=== PATIENT | female | born 1985 | race Caucasian/White ===

== ENCOUNTER 2016-09-28 16:25 | Inpatient (IN) | payer OTHER ==
--- NOTE | ~2016-09-28 | CO ---
Unit #: [id number] #: [id number] Patient: PHI VILLA [id number] [place] [address] [id number] I MR#: [id number] NAME: PHI VILLA ROOM: 73 Age: 31 Sex: F Admission Date: 09/28/2016 : 1985 Attending Physician: Junior Anderson M.D. Consultation Date: 09/28/2016 CONSULTATION REPORT ZOEY Madden is a 31-year-old, admitted because of her illicit drug use, which included abusing pain pills. She complained to nursing staff of pain in her coccyx. She denies any injury and she has had no problem with her bowel movements. We have been asked to assess and give recommendations. Please see H and P for physical exam. Because of her abuse of pain pills, we can treat this discomfort/pain with Tylenol and/or Motrin. Both of these have already been ordered. Dictated by... Aurora Mccracken P.A.-C. for Abundio Servin/meek TD: 10/01/2016 02:50 JOB #: [id number] CONSULTATION REPORT X Aurora Mccracken CONSULTATION REPORT
--- NOTE | ~2016-09-28 | HP ---
Unit #: [id number] #: [id number] Patient: MARYANNE VILLA [id number] [facility] [address] [place] [address] [id number] I MR#: [id number] NAME: MARYANNE VILLA ROOM: P173 Age: 31 Sex: F Admission Date: 09/28/2016 : 1985 Attending Physician: Junior Anderson M.D. Admitting Physician: Junior Anderson M.D. Primary Care Physician: Generic Doctor Not In System HISTORY AND PHYSICAL HISTORY OF PRESENT ILLNESS Maryanne is a 31 year old admitted to [facility] because of her illicit drug use which includes cocaine and abusing pain pills. PAST MEDICAL HISTORY Long history of opioid abuse. PAST SURGICAL HISTORY Nothing reported ALLERGIES No known drug allergies. SOCIAL HISTORY Smokes greater than one pack per day. Denies alcohol. Admits to a long history of opioid abuse. FAMILY HISTORY Medically noncontributory. REVIEW OF SYSTEMS CONSTITUTIONAL: No fever or chills. HEENT: Denies any sore throat, ear pain or runny nose. CARDIOVASCULAR: Denies chest pain, irregular heart rhythm or palpitations. CHEST: Denies shortness of breath or cough. No hemoptysis. GASTROINTESTINAL: Denies nausea, vomiting, diarrhea or chronic constipation. ENDOCRINE: Denies history of increased thirst or urination. No recent significant weight loss or gain. GENITOURINARY: Denies dysuria, frequency, or hematuria. SKIN: Denies any rashes. HEMATOLOGIC: Denies history of increased bleeding or bruising. MUSCULOSKELETAL: Denies any hot, swollen joints. No generalized muscle pain. NEUROLOGIC: Denies problems with vision or speech. No frequent, severe headaches. No numbness, tingling or weakness in any extremities. Denies loss of bladder or bowel control. CURRENT MEDICATIONS Detox protocol Unit #: [id number] #: [id number] Patient: MARYANNE VILLA PHYSICAL EXAMINATION GENERAL: Alert, well-nourished, in no apparent distress. VITAL SIGNS: Blood pressure 120/84, heart rate 100, respirations 16, temperature 98.6. WEIGHT: 130 pounds. HEIGHT: 5'9". SKIN: Warm and dry without rash or lesion. HEENT: Normocephalic. TMs not viewed. Oral and nasal passages clear. Conjunctivae clear. Pupils equal, round and reactive to light and accommodation. Extraocular movements intact. NECK: Supple without lymphadenopathy or thyromegaly. HEART: Regular rate and rhythm without murmur. LUNGS: Clear. ABDOMEN: Soft, nontender. : Not done. EXTREMITIES: No evidence of cyanosis, clubbing or edema. Moves all extremities without focal deficit. NEUROLOGICAL: Grossly within normal limits. Cranial Nerves: II: Visual turner are intact. III, IV AND : Extraocular movements are intact. Pupils are equal, round and reactive to light. V: Facial sensation is grossly normal. VII: Facial movements and expression are normal. VIII: Auditory acuity grossly intact. IX, X: Uvula is midline. Phonation is normal. XI: Patient shrugs shoulders and turns head normally. XII: Tongue protrudes in the midline. Sensory and Motor Function: Sensory and motor sensation is grossly normal. Motor: moves all extremities well. Coordination: Gait is normal. Deep Tendon Reflexes: Intact. IMPRESSION Psychiatric admission RECOMMENDATIONS PSYCHIATRIC: Per psychiatrist. MEDICAL: I see no contraindications to participating in facility's activities. MEDICAL PROGNOSIS Good. MEDICAL CONDITION Stable. Dictated by... Aurora Mccracken P.A.-C. for Abundio Servin/alexa TD: 09/29/2016 02:43 JOB #: [id number] Unit #: [id number] #: [id number] Patient: MARYANNE VILLA HISTORY AND PHYSICAL X Aurora Mccracken X HISTORY AND PHYSICAL
--- NOTE | ~2016-09-28 | A ---
[facility] Nutrition Therapy DATE: 09/30/16 Patient: PHI VILLA Physician: ANU Address: [address] [facility] Room/Bed: [address], Zip: [place] [address] Admit Date: 09/28/16 Date of : [birth year] Height: 5 9 Weight: 129 58.21478 NUTRITIONAL ASSESSMENT: REASON: 1 point malnutrition risk score re: unintentional weight loss Admitting Dx: 31 y/o female undergoing heroin/opioid detox PMH: Opioid abuse, > 1 ppd smoker, Hep C Anthropometrics: Ht: 69", Wt: 130 lbs, BMI: 19 (normal) Labs: AST 63, ALT 96 Meds: Milk of Mg, Mag-al, MVI, Thiamine, Folic acid, Phenergan/zofran, psych meds noted Assessment: Chart reviewed, events noted. Patient undergoing heroin/opiod detox, see admitting dx and PMH above. Patient employed with same job since January of last year, lives in an apartment with her child. She is on a regular diet with no caffeine. She confirms a 30 lb weight loss in the past 4 months due to "using." Yesterday she had complained of some nausea and cramps but seems better today, states she is eating "anything and everything," which is normal for her while detoxing. She confirms receiving large portion entrees with lunch and dinner, says she usually drinks off-brand Ensure 1 per day at home, likes vanilla. She says the Ensure seems to help her maintain her current weight, but does not promote weight gain. RD explained patient is still at a healthy weight, but if she continues to lose weight she will be underweight, goal is to maintain current weight status. Patient agreed, was very pleasant and appreciative. See RD recs below. Dx: Unintentional weight loss r/t drug abuse AEB 1 point malnutrition risk score, patient confirms losing approx. 30 lbs since April. Intervention: Continue large entree with L/D Monitoring, Evaluation and Goals: 1. Adequate oral intake > 75% of meals with minimal c/o N/V. 2. Prevent further unintentional weight loss, maintain current weight status. Recommendations: 1. Continue regular diet, no caffeine per MD. Continue large portion entree with lunch and dinner. Encourage adequate solid and fluid intake. 2. If patient's PO intake falls below 50% of meals please order vanilla Ensure Plus BID. She is eating very well at this time and all of large portions. [facility] Nutrition Therapy DATE: 09/30/16 Patient: PHI VILAL Physician: ANU Address: [address] [place] [address] Room/Bed: [address], Zip: [place] [address] Admit Date: 09/28/16 Date of : [birth year] Height: 5 9 Weight: 129 58.92562 3. Please weigh q 3 days for monitoring purposes, as she has lost approx. 30 lbs since April. Please notify RD if weights start trending down. 4. Please consult RD with any further nutritional needs. Mild-moderate nutrition risk Respectfully, Meghan Ayala, ERIN, LD [facility] cc: client file
--- NOTE | ~2016-09-28 | PA ---
Unit #: [id number] #: [id number] Patient: PHI VILLA [id number] [facility] [address] [place] [address] [id number] I MR#: [id number] NAME: PHI VILLA ROOM: P173 Age: 31 Sex: F Admission Date: 09/28/2016 : 1985 Date of Assessment: 09/29/2016 Attending Physician: Junior Anderson M.D. Admitting Physician: Junior Anderson M.D. Primary Care Physician: Generic Doctor Not In System PSYCHIATRIC ASSESSMENT INFORMANTS The patient's reliability, fair; chart reliability, good. CHIEF COMPLAINT Opioid use and cocaine abuse. HISTORY OF PRESENT ILLNESS Ms. Madden is a 31-year-old female, seen on with the above-mentioned complaint. The patient reported using 1 to 3 g of heroin IV per day. The patient reported using 0.25 to 2 g of cocaine IV. The patient reported use for almost a year. The patient reported when she tries to not do heroin, she will snort and shoot at least 90 mg of Percocet. The patient reported that she relapsed 4 years ago. The patient clean for a month. The patient has a history of previous treatment for substance abuse in [place] in 2012, counseling associated in 2013, at [facility] at age 18, residential treatment at [facility] in 2005. The patient has a daughter 1-year-old. The patient currently denied any suicidal or homicidal ideation. Denied any psychotic symptom. Needing inpatient admission at this time for psychiatric stabilization. PAST PSYCHIATRIC HISTORY Remarkable for history of previous treatment as mentioned above. FAMILY HISTORY AND SOCIAL HISTORY The patient has 1-year-old daughter, not with her. The patient reported history of alcohol abuse and bipolar disorder in father. History of substance abuse in sibling. No known history of any abuse known. The patient reported drug charges in the past in 2011, possession of cocaine, incarcerated for burglary and DUI. The patient denied any current court date. No history of any abuse. MEDICAL HISTORY Unremarkable for any chronic medical illness. Musculoskeletal; muscle strength and tone, no atrophy or abnormal movement. Gait normal. MEDICATION HISTORY None. ALLERGIES No known drug allergies. SUBSTANCE ABUSE HISTORY Unit #: [id number] #: [id number] Patient: PHI VILLA The patient reported tobacco use, age of onset 16; alcohol, age of onset 16; crack cocaine, age of onset 17; opioid, age of onset 17. The patient reported history of blackout, HIV, withdrawal symptom, IV drug use. Currently having tremor, diarrhea, nervousness, depressed mood, poor appetite. REVIEW OF SYSTEMS HEENT: Eyes, clear. Ears, nose, mouth, and throat; clear. CARDIOVASCULAR: Unremarkable. RESPIRATORY: Unremarkable. GI: Unremarkable. : Unremarkable. SKIN: Unremarkable. LYMPH NODE: Unremarkable. NEUROLOGIC: Unremarkable. ENDOCRINE: Unremarkable. HEMATOLOGIC: Unremarkable. ALLERGIC/IMMUNOLOGIC: Unremarkable. MUSCULOSKELETAL: Muscle strength and tone, no atrophy or abnormal movement. Gait normal except as mentioned above. MENTAL STATUS EXAMINATION CONSTITUTIONAL: Measurement of vital signs; temperature 97.9, pulse 58, respirations 20, blood pressure 80/44. Height 5 feet 9 inches, weight 130 pounds. GENERAL APPEARANCE: The patient dressed casually. The patient did not show any facial deformity. PSYCHIATRIC EXAMINATION Description of speech; regular rate, normal volume, normal articulation, coherent. Description of thought process, goal directed. Description of association, intact. Description of abnormal psychotic thinking; the patient denied any hallucination or delusions, but mood lability and substance abuse. Description of the patient's judgment; concerning everyday activity, poor. Social situation, poor. Concerning psychiatric condition, poor. The patient denied any suicidal or homicidal ideation or any psychotic symptom. Complete mental status examination; oriented in time, place, and person. Recent and remote memory, fair. Attention span and concentration, fair. Language, able to name object and repeat phrases. Fund of knowledge, fair. Vocabulary, fair. Mood and affect, sad and dysphoric. Insight and judgment, fair to poor. ASSETS AND LIABILITIES Assets; the patient articulate, able to take care of her ADL. Liability; history of substance abuse. ADMITTING DIAGNOSES Psychiatric: Opioid use disorder, severe, F11.20, moderate; cocaine use disorder, severe, F14.20; mood disorder, not otherwise specified, F32.9. Secondary diagnosis: Deferred. Medical diagnosis: None. Stressors: Psychosocial stressors. Unit #: [id number] #: [id number] Patient: PHI VILLA PSYCHIATRIC PLAN AND TREATMENT GOAL 1. Advised to admit the patient on the inpatient unit. Provide safe, supportive, and structured environment. 2. Ordered labs; CBC, CMP, UA, and UDS. 3. Detox protocol and detox monitoring. The patient to be monitored closely. The patient to attend group therapy, individual therapy, and chemical dependency group. Treatment goal to attain euthymic mood, gain insight into her problem, and learn coping skills. If needed, consider further adjustment of medication. DISCHARGE PLAN Plan to stabilize the patient and consider followup in outpatient program. ESTIMATED LENGTH OF STAY 3 to 5 days. Dictated by... Junior Anderson M.D. BISHNU/meek TD: 09/30/2016 02:25 JOB #: [id number] PSYCHIATRIC ASSESSMENT X Junior Anderson MD PSYCHIATRIC ASSESSMENT
--- NOTE | ~2016-09-28 | DS ---
Unit #: [id number] #: [id number] Patient: PHI VILLA [id number] [facility] [address] [place] [address] [id number] I MR#: [id number] NAME: PHI VILLA ROOM: P173 Age: 31 Sex: F Admission Date: 09/28/2016 : 1985 Discharge Date: 09/30/2016 Attending Physician: Junior Anderson M.D. Primary Care Physician: Generic Doctor Not In System DISCHARGE SUMMARY REASON FOR ADMISSION Heroin use and withdrawal. DIAGNOSTIC STUDIES LABORATORY RESULTS: Remarkable for AST 63 and ALT 96. HOSPITAL COURSE The patient was admitted to inpatient unit on 09/28/2016 and discharged on 09/30/2016. The patient was treated with group therapy, individual therapy, medication management. The patient responded well with the above modalities of treatment. Subsequently, the patient was discharged with a plan to follow up in outpatient clinic. DISCHARGE MEDICATIONS None. DISCHARGE DIAGNOSES Psychiatric: Opioid use disorder, severe, F11.20; cocaine use disorder, severe, F14.20; mood disorder, not otherwise specified, F32.9. Secondary diagnosis: Deferred. Medical diagnosis: None. Stressors: Psychosocial stressors. DISCHARGE INSTRUCTIONS The patient to follow up in outpatient clinic as per adoption social worker. CONDITION ON DISCHARGE The patient was pleasant and cooperative. Denied any psychotic symptom or any suicidal ideation. PROGNOSIS Guarded. DIET AND ACTIVITY As tolerated. Dictated by... Junior Anderson M.D. Unit #: [id number] #: [id number] Patient: PHI VILLA SZC/modl TD: 10/01/2016 01:37 JOB #: [id number] DISCHARGE SUMMARY X Junior Anderson MD X DISCHARGE SUMMARY
--- NOTE | ~2016-09-28 | PN ---
Unit #: [id number] #: [id number] Patient: PHI VILLA [id number] [facility] [address] [place] [address] [id number] I MR#: [id number] NAME: PHI VILLA ROOM: 73 Age: 31 Sex: F Admission Date: 09/28/2016 : 1985 Attending Physician: Junior Anderson M.D. Admitting Physician: Junior Anderson M.D. Primary Care Physician: Generic Doctor Not In System [facility] PROGRESS NOTES DATE 09/29/2016 DISCUSSION Ms. Madden is a 31-year-old female, seen on 09/29/2016. The patient's vital signs, temperature 98.9, pulse 102, respirations 20, and blood pressure 120/85. Height: 5 feet 9 inches. Weight: 130 pounds. The patient is seclusive, isolative, and guarded, flat affect, anxious and nervous. The patient reported having withdrawal symptoms. The patient reported anxiousness, nervousness, and mood lability, nausea and vomiting, body aches. REVIEW OF SYSTEMS Complete review of systems unremarkable. MENTAL STATUS EXAMINATION General appearance: Patient casually dressed. Attention span and concentration, fair. Oriented to place and person. Mood and affect, sad and dysphoric. Speech, monotone. Thought process, goal-directed. Association, the patient denied any thoughts of harming self or others or any psychotic symptoms. Recent and remote memory, poor. Insight and judgment, poor. DIAGNOSIS Opiate use disorder, severe. ASSESSMENT/PLAN Advised to continue with the current medication and therapeutic protocol and will monitor response to medication, and make further adjustment of medication. Dictated by... Abundio Wong/robles TD: 09/30/2016 10:17 JOB #: [id number] Unit #: [id number] #: [id number] Patient: PHI VILLA [facility] PROGRESS NOTES X Junior Anderson MD PROGRESS NOTE
[2016-09-29 09:46] LABS: BASOPHIL% 1.1 % (0-2.5); EOSINOPHIL# 0.2 X10e3 (0-0.7); EOSINOPHIL% 4.5 % (0.0-7.0); HEMATOCRIT 37.4 % (35.0-45.0); HEMOGLOBIN 12.4 gm/dL (12.0-16.0); LYMPHOCYTE# 1.7 X10e3 (1.0-3.5); LYMPHOCYTE% 48.9 % (17.0-45.0); MEAN CELL VOLUME 84.4 FL (83-96); MEAN CORPUSCULAR HGB CONC 33.1 g/dL (30-36); MEAN PLATELET VOLUME 10.1 FL (6.5-11.5); MONOCYTE# 0.3 X10e3 (0-1.0); MONOCYTE% 8.1 % (3.0-12.0); NEUTROPHIL# 1.3 X10e3 (1.5-7.1); NEUTROPHIL% 37.4 % (40-75); PLATELET COUNT 130 X10e3 (140-420); RED BLOOD COUNT 4.43 X10e (3.90-5.30); RED CELL DISTRIBUTION WIDTH 14.2 % (11.0-15.5); WHITE BLOOD COUNT 3.5 X10e3 (4.0-10.5)
[2016-09-29 09:56] LABS: DIFF IND NO
[2016-09-29 10:57] LABS: ALBUMIN SERUM 3.5 g/dL (3.5-5.0); ALKALINE PHOSPHATASE 48 U/L (32-92); ALT (SGPT) 96 U/L (10-40); AST (SGOT) 63 U/L (10-42); BILIRUBIN,TOTAL 0.6 mg/dL (0.2-2.0); BLOOD UREA NITROGEN 11 mg/dL (9-23); BUN/CREATININE RATIO 12.22; CALCIUM SERUM 8.7 mg/dL (8.4-10.2); CARBON DIOXIDE 25 mmol/L (22-31); CHLORIDE 108 mmol/L (100-111); CREATININE SERUM 0.9 mg/dL (0.6-1.4); GLOM FILT RATE Estimated ABOVE60 mL/min (>60); GLUCOSE FASTING 82 mg/dL (70-110); POTASSIUM 3.8 mmol/L (3.5-5.1); PROTEIN TOTAL SERUM 5.8 g/dL (6.0-8.3); SODIUM 138 mmol/L (135-145)
[2016-09-29 10:58] LABS: THYROID STIMULATING HORMONE 1.67 uIU/ml (0.34-5.60)
[2016-09-29 11:05] LABS: FREE THYROXIN (T4) 0.78 ng/dL (0.58-1.64)
== END 2016-09-30 15:10 | disposition home or self-care (01) | DRG 897 ==
LOC: P1E 16:25
PROVIDERS: Psychiatry & Neurology Psychiatry
PROC: HZ2ZZZZ Detoxification Services for Substance Abuse Treatment (ICD-10-PCS; principal; 2016-09-28)
DX: F11.20 Opioid dependence, uncomplicated (principal); F14.20 Cocaine dependence, uncomplicated; F17.210 Nicotine dependence, cigarettes, uncomplicated; F39 Unspecified mood [affective] disorder
CPT/HCPCS: 80053; 84439; 84443; 84703; 85025; 86592